=== PATIENT | female | born 2000 | race Caucasian/White ===

== ENCOUNTER 2025-03-23 10:40 | Outpatient (CLI) | payer OTHER, SELFPAY ==
--- OUTSIDE RECORDS SUMMARY | 2025-03-23 11:28 | XMS_ITS | Clinical Summary ---
Author Organization [facility] Address [address] [place] [address] Care Team Providers Care Industrial Radiographer Name Role Phone Angel Hooks MD Primary Care Provider [phone] Social History Tobacco Use Types Packs/Day Years Used Date Smoking Tobacco: Never Assessed Comments Unknown Sex and Gender Information Value Date Recorded Sex Assigned at Not on file Legal Sex Female 7:42 PM CDT Gender Identity Not on file Sexual Orientation Not on file Plan of Treatment Health Maintenance Due Date Last Done Comments Cervical Cancer Screening Pa p Smear (Age 21 to 29) Every 3 Years 1998 Cervical Cancer Screening 1998 Annual Physical 2001 HPV Vaccines (1 - 3-dose series) 2013 Hepatitis C 2016 DTaP, Tdap and Td Vaccines ( 1 - Tdap) 2017 Hepatitis B Vaccines (1 of 3 - 19+ 3-dose series) 2017 COVID-19 Vaccine ( - 2024-2 6 season) 2025 Influenza Adult (#1) 2025 Hepatitis A Vaccines Aged Out No long er eligible based on patient's age to complete this topic Meningococcal B Vaccine Aged Out No l onger eligible based on patient's age to complete this topic Meningococcal Vaccine Aged Out No srinivas angel eligible based on patient's age to complete this topic Pneumococcal Vaccine: Pediat rics (0 to 5 Years) and At-Risk Patients (6 to 49 Years) Aged Out No longer eligible b ased on patient's age to complete this topic RSV Immunizations Under 20 Months Aged Out No longer eligible based on patient's age to complete this topic Insurance [employer] Care Teams Industrial Radiographer Relationship Specialty Start Date End Date Angel Hooks MD [address] [place] [address] PCP - General FAMILY PRACTICE 02/01/23
--- OUTSIDE RECORDS SUMMARY | 2025-03-23 11:28 | XMS_ITS | Clinical Summary ---
Author Organization [facility] Address [address], [facility] [address] [place] [address] Phone Care Team Providers Care General Studies Program Chair Name Role Phone Angel Hooks Primary Care Provider Ramiro Freeman MD Unavailable [phone] Allergies No known active allergies Medications tranexamic Acid (LYSTEDA) 650 MG Tablet Take 2 Tablets by mouth. 08/17/2024 Active Vit-Fe Fumarate-FA ( VITAMIN PO) Take by mouth. Active Active Problems Problem Noted Date Diagnosed Date Iron deficiency anemia 04/03/2024 Encounters Date Type Department Care Team Description 03/13/2025 Telephone [facility] [address] [phone] Ramiro Freeman MD 01/05/2025 8:00 AM CDT Clinical Support [facility] [address] [phone] Nurse, Cc Zeke Iron deficiency anemia, unspecified iron deficiency anemia type (Primary Dx) 01/05/2025 Travel 12/29/2024 8:00 AM CDT Clinical Support [facility] [address] [phone] Nurse, Cc Zeke Iron deficiency anemia, unspecified iron deficiency anemia type (Primary Dx) 12/29/2024 Travel 12/22/2024 8:00 AM CDT Clinical Support [facility] [address] [phone] Nurse, Marsha Alanis Iron deficiency anemia, unspecified iron deficiency anemia type (Primary Dx) 12/22/2024 Travel from Last 3 Months Family History Medical History Relation Name Comments Anemia Father Relation Name Status Comments Father Social History Tobacco Use Types Packs/Day Years Used Date Smoking Tobacco: Never Smokeless Tobacco: Never Tobacco Cessation:Counseling Given: Not Answered Alcohol Use Standard Drinks/Week Comments Not Currently 0 (1 standard drink = 0.6 oz pur e alcohol) Comments Unknown Sex and Gender Information Value Date Recorded Sex Assigned at Not on file Legal Sex Female 3:40 PM SUPERVISOR HOT DIP PLATING Gender Identity Not on file Sexual Orientation Not on file Last Filed Vital Signs Vital Sign Reading Time Taken Comments Blood Pressure 112/64 12/08/2024 12:37 PM CDT Pulse 82 12/08/2024 12:37 PM CDT Temperature 36.7 C (98 F) 12/08/2024 12:37 PM CDT Respiratory Rate 18 12/08/2024 12:37 PM CDT Oxygen Saturation 99% 12/08/2024 12:37 PM CDT Inhaled Oxygen Concentration - - Weight 72 kg (158 lb 11.2 oz) 12/08/2024 12:37 P M CDT Height 154.9 cm (5' 1) 12/08/2024 12:37 PM CDT Body Mass Index 29.99 12/08/2024 12:37 PM CDT Plan of Treatment Upcoming Encounters Date Type Department Care Team (Late st Contact Info) Description 04/27/2025 8:00 AM SUPERVISOR HOT DIP PLATING Lab [facility] [address] [phone] Lab, Marsha Alanis [place] 04/27/2025 8:15 AM SUPERVISOR HOT DIP PLATING Office Visit [facility] [address] [phone] Eduar Martínez MD [address] [place] [address] Health Maintenance Due Date Last Done Comments Hepatitis C Virus (HCV) Screening 1998 Human Papillomavirus (HPV) Immunization (1 - 3-dose series) 2013 Hepatitis B Immunization (1 of 3 - 19+ 3-dose series) 2017 Pap Smear 11/06/2019 Influenza Immunization (#1) 2025 SARS-COV-2 Immunization (1 - 2024- season) 2025 Respiratory Syncytial Virus (RSV) Immunization (Adult) (1 - 1-dose 75+ series) 2073 TdaP Immunization Completed 08/21/2024 Meningococcal Immunization (ACWY) Aged Out No longer eligible based on patient's age to complete this topic Pneumococcal Immunization Combined Aged Out No longer eligible based on patient's age to complete this topic Rotavirus Immunization Aged Out No lo nger eligible based on patient's age to complete this topic Insurance [facility] Care Teams General Studies Program Chair Relationship Specialty Start Date End Date Jessee Angel [address] [address] PCP - General Family Medicine 03/23/24 Ramiro Fereman MD [address] [address] Consulting Physician Oncology 03/23/24
--- OUTSIDE RECORDS SUMMARY | 2025-03-23 11:28 | XMS_ITS | Data Portability ---
Author Organization [facility] Address [address] [place] [address] Care Team Providers Care Doctor Of Medicine Name Role Phone BERTIN TEMPLETON Primary Care Provider [phone] Assessment Encounter Date Assessment Date Assessment LastModified by Organization Details LastModified Time 08/22/2024 08/22/2024 Annual gynecological exam performed. Patient will come back in a year unless there are new symptoms. Not available 08/22/2024 09:15:11 Plan of Treatment Reminders Order Date Submit Date Provider Last Modified By Organization Details Last Modified Time Details Appointments U/S OB SNEAK PEAK 2024 03:30P M ULTRASOUND Not available Not available Not available OB SCREEN 2024 04:00P M April Oshea CNM Not available Not available Not available Lab None recorde d. Referral None recorde d. Procedures None recorde d. Surgeries None recorde d. Imaging None recorde d. Medication Orders None recorde d. Patient TargetsNo targets recorded. Patient InstructionsNo instructions recorded. Reason for Referral None Reported. Medical Equipment None Reported. Allergies No known drug allergies Medications Name Sig Start Date Stop Date Status Note LastModified by Organization Details LastModified Time methylpredn isolone 4 mg tablets in a dose pack FOLLOW PACKAGE DIRECTION S 08/22 completed Not Available Not Available Not Available tranexamic acid (bulk) 08/22 completed Not Available Not Available Not Available tranexamic acid 650 mg tablet TAKE 2 TABLETS BY MOUTH THREE TIMES DAILY DURING MENSES active Not Available Not Available No t Available Sodium Fluoride 5000 Plus 1.1 % dental cream USE ON TEETH DIRECTED. 04/08 /2025 completed Not Available Not Available Not Available Vitals Date Recorded Body height Body mass index (BMI) Body weight Systolic And Diastolic Provider Name and Address Organization Details Last Updated DateTime 08/22/2024 157.48 cm 29.4 kg/m2 36911.65 g 106/70 mm[Hg] Agatha Ayala [facility] 08/22/2024 09:34:23 Social History Question Answer Notes LastModified by Organizat ion Details LastModified Time Do You Have An Advance Directive? No [email or web address] Information n ot available 08/22/2024 Are You Blind Or Do You Have Difficulty Seeing? No [email or web address] Information n ot available 08/22/2024 What Is Your Level Of Caffeine Consumption? Occasional Information not available 08/22/2024 How Much Tobacco Do You Chew? None [email or web address] Information not available 08/22/2024 In The 14 Days Before Symptom Onset, Have You Had Close Contact With A Laboratory-confirm ed COVID-19 While That Case Was Ill? No [email or web address] Information n ot available 08/22/2024 In The 14 Days Before Symptom Onset, Have You Had Close Contact With A Person Who Is Under Investigation For COVID-19 While That Person Was Ill? No Information not available 08/22/2024 Have You Been To An Area Known To Be High Risk For COVID-19? No Information not available 08/22/2024 Are You Deaf Or Do You Have Serious Difficulty Hearing? No [email or web address] Information not available 08/22/2024 What Type Of Diet Are You Following? REGULAR [email or web address] Information n ot available 08/22/2024 What Is The Highest Grade Or Level Of School You Have Completed Or The Highest Degree You Have Received? [id number] [email or web address] Information not available 08/22/2024 Are There Any Guns Present In Your Home? Yes [email or web address] Information not available 08/22/2024 Do You Use Protection During Sex? No Information not available 08/22/2024 Do You Use Your Seat Belt Or Car Seat Routinely? Yes [email or web address] Information not available 08/22/2024 Are You Sexually Active? Yes [email or web address] Information not available 08/22/2024 Do You Have Smoke And Carbon Monoxide Detectors In Your Home? Yes [email or web address] Information not available 08/22/2024 How Much Tobacco Do You Smoke? No [email or web address] Information not available 08/22/2024 Do You Use Sunscreen Routinely? Yes Information not available 08/22/2024 Have You Used IV Drugs? No [email or web address] Information not available 08/22/2024 Do You Have Difficulty Walking Or Climbing Stairs? No [email or web address] Information not available 08/22/2024 Sex: Unknown Functional Status Question Answer Note LastModified by Organizat ion Details LastModified Time Do you use any illicit or recreational drugs? No [email or web address] Information not available 08/22/2024 What is your level of alcohol consumption? Occasional [email or web address] Information not available 08/22/2024 Are you currently employed? Yes Information not available 08/22/2024 Are you able to walk independently without assistance or assistive devices? YESWOREST [email or web address] Information not available 08/22/2024 Are you able to care for yourself independently? 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 No [email or web address] Information not available 08/22/2024 What is your exercise level? Occasional Information not available 08/22/2024 Mental Status Question Answer Note LastModified by Organization D etails LastModified Time Do you feel stressed (tense, restless, nervous, or anxious, or unable to sleep at night)? [id number] Information not available 08/22/2024 Family History Relationship Description Onset Age of this Age Resolved Age Notes LastModified by Organization Details LastModified Time Mother Anemia [email or web address] Not available 08/22/2024 09:15:23 Maternal Grandmother Anemia [email or web address] Not available 12/2024 09:15:23 Maternal Grandmother Malignant neoplasm of colon [email or web address] Not available 2024 09:35:51 Paternal Grandfather Malignant neoplasm of colon [email or web address] Not available 2024 09:35:51 Medical History Condition Response Anemia Y Gynecological History Statement/Question Response Flow Moderate Date of LMP 08/15/2024 On BCP's at Conception? N N Was last menstrual period normal Y STIs/STDs N HPV Vaccine Y Duration of Flow (days) 5 Current Control Method Withdrawal Frequency of Cycle (Q days) 30 Sexually Active? Y Menses Monthly Y Age of first menstrual cycle 10 Date of Last Pap Smear Sexual Problems? N LMP Definite N Obstetrics History GPAL:G 0 P 0 0 0 0 Past Encounters Encounter ID Performer Location Encounter Start Date Encounter Closed Date Diagnosis/Indication Diagnosis SNOMED-CT Code Diagnosis ICD10 Code Diagnosis IMO Codes Diagnosis Note [id number] Pasha Rawls MD [facility] [address] [address] 08/22/2024 09:13:45 08/22/2024 10:03:48 Gynecologic examination 76469567 Z01.419 Annual gynecologi rayshawn exam performed. Patient will come back in a year unless there are new symptoms. Suggest Calcium with Vitamin D if not eating in diet. Patient advised to get annual flu shot. Recommend yearly physicals and perform monthly breast exams. Genetic testing is available for patients with family history of cancer. Engage in safe sexual practices, use condoms. Encouraged to have daily exercise. Avoid tobacco and illicit drugs, moderation of alcohol. If BMI greater than 25 dietary consult advised. If you have any questions please call or email. Pap smear- UTD per pt - 2023 WNL (will request records from [place]'s office) Genetic screening discussed laboratory evaluation - PCP STI testing - declined Recommende d taking PNV when trying to conceive. Health Concerns Section Related Observation LastModified by Organization Detai ls LastModified Time None Recorded Concern Status LastModified by Organization Details LastModified Time None Recorded Advance Directives Directive N: Payers Insurance Date Sequence Insurance Name Policy Number Policy Amaro Covered Member ID Amaro Member ID Guarantor Name 03/21/2025 1 [facility] [id number] Selina Charles [id number] Selina Charles 03/22/2025 1 [facility] ([facility] [id number] Selina Charles [id number] Selina Charles Notes Date Note Type Note Provider Name and Address Organization Details Recorded Time text/html Annual GYNReported by PatientGenitourinary symptomsFor menstrual cycle, patient reportsnormal menses. For urinary symptoms, patient reportsno hematuriaandno incontinence. For vulva, patient reportsno genital lesion. For vagina, patient reportsnormal vaginal discharge.Breast symptomsFor breast, patient reportsno breast pain,no breast lump, andno nipple discharge.ContraceptionFo r current contraception, patient reportsbirth control not practiced.Endocrine symptomsFor sexual complaints, patient reportsno sexual complaints,no pain during intercourse, andnormal libido. For menopausal symptoms, patient reportsno menopausal symptomsandnormal vaginal lubrication.Psychological symptomsFor psychological symptoms, patient reportsno depression,no anxiety, andno pmdd.Preventative measuresFor preventive measures, patient reportsencourage self breast examination,encourage regular exercise,encourage no tobacco use, andencourage regular mammograms starting age 40. New patient presents to establish care.Patient denies specific concerns today. Patient takes Lysteda PRN for heavy periods and hx of anemia; PCP orders manages this medication.Patient and partner considering trying to conceive in the next year so patient prefers to not be on control. DONAVON GALVAN NP [address], [place], [address], [place] [facility] 08/22/2024 10:00:53 OBGyn Episode No OBEpisode recorded.
[2025-03-23 12:55] LABS: Beta HCG Quantitative 13750.00 mIU/ML
== END 2025-03-23 10:41 | disposition home or self-care (01) ==
PROVIDERS: PCP Emergency Medicine; Visit Provider Advanced Practice Midwife
DX: O20.9 Hemorrhage in early pregnancy, unspecified (principal); Z3A.00 Weeks of gestation of pregnancy not specified
CPT/HCPCS: 36415; 84702; 86850; 86900; 86901

== ENCOUNTER 2025-03-25 11:39 | Outpatient (CLI) | payer OTHER, SELFPAY ==
--- OUTSIDE RECORDS SUMMARY | 2025-03-25 12:15 | XMS_ITS | Clinical Summary ---
Author Organization [facility] Address [address], [facility] 1 [place] [address] Phone Care Team Providers Care Punchboard Stuffer Name Role Phone Angel Hooks Primary Care Provider Ramiro Freeman MD Unavailable [phone] Allergies No known active allergies Medications tranexamic Acid (LYSTEDA) 650 MG Tablet Take 2 Tablets by mouth. 08/17/2024 Active Vit-Fe Fumarate-FA ( VITAMIN PO) Take by mouth. Active Active Problems Problem Noted Date Diagnosed Date Iron deficiency anemia 04/03/2024 Encounters Date Type Department Care Team Description 03/13/2025 Telephone [facility] [address] [phone] Ramiro Freeman MD 01/05/2025 8:00 AM CDT Clinical Support [facility] [address] [phone] Nurse, Cc Zeke Iron deficiency anemia, unspecified iron deficiency anemia type (Primary Dx) 01/05/2025 Travel 12/29/2024 8:00 AM CDT Clinical Support [facility] [address] [phone] Nurse, Cc Zeke Iron deficiency anemia, unspecified iron deficiency anemia type (Primary Dx) 12/29/2024 Travel from Last 3 Months Family History [...] on file Legal Sex Female 3: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 Gender Identity Not on file Sexual Orientation [...] st Contact Info) Description 04/27/2025 8:00 AM BULLDOZER/LOADER/COMPACTOR/SCRAPER Lab [facility] [address] [phone] Lab, Cc [facility] 04/27/2025 8:15 AM BULLDOZER/LOADER/COMPACTOR/SCRAPER Office Visit [facility] [address] [phone] Eduar Martínez MD [address] [place] [id number] Health Maintenance Due Date Last Done Comments Hepatitis C Virus (HCV) Screening 1998 Human Papillomavirus (HPV) Immunization (1 - 3-dose series) 2013 Hepatitis B Immunization (1 of 3 - 19+ 3-dose series) 2017 Pap Smear 11/06/2019 Influenza Immunization (#1) 2025 SARS-COV-2 Immunization ( - 2025-26 season) 2025 Respiratory Syncytial Virus (RSV) Immunization [...] patient's age to complete this topic Insurance [facility] Care Teams Punchboard Stuffer Relationship Specialty Start Date End Date Angel Hooks [address] [id number] PCP - General Family Medicine 03/23/24 Ramiro Freeman MD [address] [address] Consulting Physician Oncology 03/23/24
--- OUTSIDE RECORDS SUMMARY | 2025-03-25 12:15 | XMS_ITS ---
Author Organization Unknown ENCOUNTERS Encounter Performer Location Date Diagnosis Diagnosis Status Outpatient [facility] [address] [place] [id number] Outpatient [facility] [address] [place] [id number] PATRIZIA *Note: Encounters from your own facility or health system may be excluded. Allergies, Adverse Reactions, Alerts Allergen Type Severity Identification Date Medications Name Date Quantity Days Supplied GPI Number
--- OUTSIDE RECORDS SUMMARY | 2025-03-25 12:15 | XMS_ITS | Clinical Summary ---
Author Organization [facility] Address [address] [place] [address] Care Team Providers Care Digital Design Engineer Name Role Phone Angel Hooks MD Primary Care Provider Social History Tobacco Use Types Packs/Day Years [...] complete this topic Insurance [employer] Care Teams Digital Design Engineer Relationship Specialty Start Date End Date Angel Hooks MD [address] [place] [address] PCP - General FAMILY PRACTICE 02/01/23
--- OUTSIDE RECORDS SUMMARY | 2025-03-25 12:15 | XMS_ITS | Data Portability ---
Author Organization [facility] Address [address] [place] [address] Care Team Providers Care Spiral Machine Operator Name Role Phone BERTIN TEMPLETON Primary Care Provider [phone] Assessment Encounter Date Assessment Date Assessment LastModified by Organization Details LastModified Time 08/22/2024 08/22/2024 Annual gynecological exam performed. Patient will come back in a year unless there are new symptoms. [email or web address] Not available 08/22/2024 09:15:11 Plan of Treatment [...] Updated DateTime 08/22/2024 157.48 cm 29.4 kg/m2 44085.65 g 106/70 mm[Hg] Agatha Ayala [facility] 08/22/2024 09:34:23 Social History Question Answer Notes LastModified by Organizat ion Details LastModified Time Do You Have An Advance Directive? No [email or web address] Information n ot available 08/22/2024 Are You Blind Or Do You Have Difficulty Seeing? No [email or web address] Information n ot available 08/22/2024 What Is Your Level Of Caffeine Consumption? Occasional [email or web address] Information not available 08/22/2024 How Much Tobacco Do You Chew? None [email or web address] Information not available 08/22/2024 In The 14 Days Before Symptom Onset, Have You Had Close Contact With A Laboratory-confirm ed COVID-19 While That Case Was Ill? No [email or web address] Information n ot available 08/22/2024 In The 14 Days Before Symptom Onset, Have You Had Close Contact With A Person Who Is Under Investigation For COVID-19 While That Person Was Ill? No [email or web address] Information not available 08/22/2024 Have You Been To An Area Known To Be High Risk For COVID-19? No Information not available 08/22/2024 Are You Deaf Or Do You Have Serious Difficulty Hearing? No [email or web address] Information not available 08/22/2024 What Type Of Diet Are You Following? REGULAR Information n ot available 08/22/2024 What Is The Highest Grade Or Level Of School You Have Completed Or The Highest Degree You Have Received? AT62954-4 [email or web address] Information not available 08/22/2024 Are There Any Guns Present In Your Home? Yes [email or web address] Information not available 08/22/2024 Do You Use Protection During Sex? No [email or web address] Information not available 08/22/2024 Do You Use Your Seat Belt Or Car Seat Routinely? Yes [email or web address] Information not available 08/22/2024 Are You Sexually Active? Yes [email or web address] Information not available 08/22/2024 Do You Have Smoke And Carbon Monoxide Detectors In Your Home? Yes Information not available 08/22/2024 How Much Tobacco Do You Smoke? No Information not available 08/22/2024 Do You Use Sunscreen Routinely? Yes [email or web address] Information not available 08/22/2024 Have You Used IV Drugs? No [email or web address] Information not available 08/22/2024 Do You Have Difficulty Walking Or Climbing Stairs? No [email or web address] Information not available 08/22/2024 Sex: Unknown Functional Status Question Answer Note LastModified by Organizat ion Details LastModified Time Do you use any illicit or recreational drugs? No [email or web address] Information not available 08/22/2024 What is your level of alcohol consumption? Occasional [email or web address] Information not available 08/22/2024 Are you currently employed? Yes [email or web address] Information not available 08/22/2024 Are you able to walk independently without assistance or assistive devices? YESWOREST [email or web address] Information not available 08/22/2024 Are you able to care for yourself independently? 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 No Information not available 08/22/2024 What is your exercise level? Occasional [email or web address] Information not available 08/22/2024 Mental Status Question Answer Note LastModified by Organization D etails LastModified Time Do you feel stressed (tense, restless, nervous, or anxious, or unable to sleep at night)? [id number] pzifnvs29 Information not available 08/22/2024 Family History Relationship Description Onset Age of this Age Resolved Age Notes LastModified by Organization Details LastModified Time Mother Anemia [email or web address] Not available 08/22/2024 09:15:23 Maternal Grandmother Anemia [email or web address] Not available 12/2024 09:15:23 Maternal Grandmother Malignant neoplasm of colon [email or web address] Not available 2024 09:35:51 Paternal Grandfather Malignant neoplasm of colon [email or web address] Not available 2024 09:35:51 Medical History Condition [...] ICD10 Code Diagnosis IMO Codes Diagnosis Note [id number] Pasha Rawls MD [place] [address] [address] 08/22/2024 09:13:45 08/22/2024 10:03:48 Gynecologic examination [id number] Z01.419 Annual gynecologi rayshawn exam performed. Patient [...] - 2023 WNL (will request records from [facility]'s office) Genetic screening discussed laboratory evaluation - [...] Amaro Member ID Guarantor Name 03/21/2025 1 [facility] [id number] Selina Charles [id number] Selina Charles 03/22/2025 1 [facility] ([facility]) [id number] Selina Charles [id number] Selina Charles Notes Date Note Type Note [...] control. DONAVON GALVAN NP [address], [place], [address], [place] [facility] 08/22/2024 10:00:53 OBGyn Episode No OBEpisode recorded.
[2025-03-25 13:10] LABS: Beta HCG Quantitative 17680.00 mIU/ML
== END 2025-03-25 11:40 | disposition home or self-care (01) ==
PROVIDERS: PCP Emergency Medicine; Visit Provider Advanced Practice Midwife
DX: O26.859 Spotting complicating pregnancy, unspecified trimester (principal); Z3A.00 Weeks of gestation of pregnancy not specified
CPT/HCPCS: 36415; 84702

== ENCOUNTER 2025-03-28 14:45 | Outpatient (CLI) | payer OTHER, SELFPAY ==
--- NOTE | ~2025-03-28 | US_ITS ---
EXAM(S)/PROCEDURE(S): Ultrasound OB less than or equal to 14 week fetus with TV HISTORY: patient bleeding COMPARISON: None GENERAL: There are 2 ovoid fluid collections in the endometrial cavity. One contains a yolk sac and a pole. One contains very hypoechoic areas of soft tissue density, mostly appearing to adhere to a wall. Heterotopic is not excluded, but would be unlikely. Number of embryos: [address]-Rump Length (mean): 0.33 cm, 6 weeks 2 days. Yolk Sac: Present. No cardiac activity was definitively identified sonographically. MATERNAL PELVIS Right ovary: Multiple simple cysts, the largest of which measures 4.4 cm in greatest diameter. Left ovary: Not seen Cul-de-sac: There is a mild to moderate amount of free pelvic fluid IMPRESSION: 1. No cardiac activity was identified by M-mode. This may represent a demise. 2. The second saclike structure could relate to a twin gestation with earlier demise. Other etiologies are not excluded. 3. I made multiple attempts to contact the nurse practitioner, both on my own and through the hospital caterpillar tractor operator. I have left a voice message. It was not asked of us to hold the patient for results. Reviewed, dictated and finalized at location A. WAREHOUSE ADMINISTRATOR IMPRESSION: 1. No cardiac activity was identified by M-mode. This may represent a dem ise. 2. The second saclike structure could relate to a twin gestation with earlier d emise. Other etiologies are not excluded. 3. I made multiple attempts to contact the nurse practitioner, both on my own a nd through the hospital caterpillar tractor operator. I have left a voice message. It was not asked of us to hold the patient for results.
--- OUTSIDE RECORDS SUMMARY | 2025-03-28 15:42 | XMS_ITS ---
Author Organization Unknown ENCOUNTERS Encounter Performer Location Date Diagnosis Diagnosis Status Outpatient [id number] [place] [address] [id number] Outpatient [address] [place] [address] [id number] [facility] Outpatient [address] [place] [address] [id number] PATRIZIA *Note: Encounters from your own facility or health system may be excluded. Allergies, Adverse Reactions, Alerts Allergen Type Severity Identification Date Medications Name Date Quantity Days Supplied GPI Number
--- OUTSIDE RECORDS SUMMARY | 2025-03-28 15:42 | XMS_ITS | Clinical Summary ---
Author Organization [facility] Address [address], [facility] [address] [place] [address] Phone Care Team Providers Care Fire Boat Engineer Name Role Phone Angel Hooks Primary Care Provider Ramiro Freeman MD Unavailable [phone] Allergies No known active allergies Medications tranexamic Acid (LYSTEDA) 650 MG Tablet Take 2 Tablets by mouth. 08/17/2024 Active Vit-Fe Fumarate-FA ( VITAMIN PO) Take by mouth. Active Active Problems Problem Noted Date Diagnosed Date Iron deficiency anemia 04/03/2024 Encounters Date Type Department Care Team Description 03/13/2025 Telephone [facility] [address] [address] Ramiro Freeman MD 01/05/2025 8:00 AM CDT Clinical Support [facility] [address] [phone] Nurse, Cc Zeke Iron deficiency anemia, unspecified iron deficiency anemia type (Primary Dx) 01/05/2025 Travel 12/29/2024 8:00 AM CDT Clinical Support [facility] [address] [phone] Nurse, Cc Zeke Iron deficiency anemia, unspecified [...] on file Legal Sex Female 3:40 PM CAREER DEVELOPMENT ENGINEER Gender Identity Not on file Sexual Orientation [...] st Contact Info) Description 04/27/2025 8:00 AM CAREER DEVELOPMENT ENGINEER Lab [facility] [address] [phone] Lab, Cc [facility] 04/27/2025 8:15 AM CAREER DEVELOPMENT ENGINEER Office Visit [facility] [address] [phone] Eduar Martínez MD [address] [place] [address] [place] [address] [phone] Health Maintenance Due Date Last Done Comments [...] patient's age to complete this topic Insurance [facility] Care Teams Fire Boat Engineer Relationship Specialty Start Date End Date Angel Hooks [address] [id number] PCP - General Family Medicine 03/23/24 Ramiro Freeman MD [address] [address] Consulting Physician Oncology 03/23/24
--- OUTSIDE RECORDS SUMMARY | 2025-03-28 15:42 | XMS_ITS | Clinical Summary ---
Author Organization [facility] Address [address] [place] [address] Care Team Providers Care Route Salesman Name Role Phone Angel Hooks MD Primary Care Provider [phone] Social History Tobacco Use Types Packs/Day Years [...] complete this topic Insurance [employer] Care Teams Route Salesman Relationship Specialty Start Date End Date Angel Hooks MD [address] [place] [address] PCP - General FAMILY PRACTICE 02/01/23
--- OUTSIDE RECORDS SUMMARY | 2025-03-28 15:43 | XMS_ITS | Data Portability ---
Author Organization [facility] Address [address] [place] [address] Care Team Providers Care Pourer Off Name Role Phone BERTIN TEMPLETON Primary Care Provider [phone] Assessment Encounter Date Assessment Date Assessment LastModified by Organization Details LastModified Time 08/22/2024 08/22/2024 Annual gynecological exam performed. Patient will come back in a year unless there are new symptoms. [email or web address] Not available 08/22/2024 09:15:11 Plan of Treatment [...] instructions recorded. Reason for Referral None Reported. Results Created Date Observation Date Name Description Value Unit Range Abnormal Flag Note LastModifiedBy Organization Detail LastModifiedTime Result Notes None recorded. Medical Equipment None Reported. Allergies No known [...] % dental cream USE ON TEETH DIRECTED. 08/22 completed Not Available Not Available Not Available Vitals Date Recorded Body height Body mass index (BMI) Body weight Systolic And Diastolic Provider Name and Address Organization Details Last Updated DateTime 08/22/2024 157.48 cm 29.4 kg/m2 77671.65 g 106/70 mm[Hg] Agatha Ayala [facility] 08/22/2024 09:34:23 Social History Question Answer Notes LastModified by Organizat ion Details LastModified Time Do You Have An Advance Directive? No [email or web address] Information n ot available 08/22/2024 Are You Blind Or Do You Have Difficulty Seeing? No [email or web address] Information n ot available 08/22/2024 What Is Your Level Of Caffeine Consumption? Occasional [email or web address] Information not available 08/22/2024 How Much Tobacco Do You Chew? None [email or web address] Information not available 08/22/2024 In The 14 Days Before Symptom Onset, Have You Had Close Contact With A Laboratory-confirm ed COVID-19 While That Case Was Ill? No [email or web address] Information n ot available 08/22/2024 In The 14 Days Before Symptom Onset, Have You Had Close Contact With A Person Who Is Under Investigation For COVID-19 While That Person Was Ill? No [email or web address] Information not available 08/22/2024 Have You Been To An Area Known To Be High Risk For COVID-19? No Information not available 08/22/2024 Are You Deaf Or Do You Have Serious Difficulty Hearing? No [email or web address] Information not available 08/22/2024 What Type Of Diet Are You Following? REGULAR pxqxlui50 Information n ot available 08/22/2024 What Is The Highest Grade Or Level Of School You Have Completed Or The Highest Degree You Have Received? [id number] [email or web address] Information not available 08/22/2024 Are There Any Guns Present In Your Home? Yes [email or web address] Information not available 08/22/2024 Do You Use Protection During Sex? No [email or web address] Information not available 08/22/2024 Do You Use Your Seat Belt Or Car Seat Routinely? Yes tnukyfy19 Information not available 08/22/2024 Are You Sexually Active? Yes vukuirn16 Information not available 08/22/2024 Do You Have Smoke And Carbon Monoxide Detectors In Your Home? Yes [email or web address] Information not available 08/22/2024 How Much Tobacco Do You Smoke? No Information not available 08/22/2024 Do You Use Sunscreen Routinely? Yes [email or web address] Information not available 08/22/2024 Have You Used IV Drugs? No [email or web address] Information not available 08/22/2024 Do You Have Difficulty Walking Or Climbing Stairs? No [email or web address] Information not available 08/22/2024 Sex: Unknown Functional Status Question Answer Note LastModified by Organizat ion Details LastModified Time Do you use any illicit or recreational drugs? No [email or web address] Information not available 08/22/2024 What is your level of alcohol consumption? Occasional [email or web address] Information not available 08/22/2024 Are you currently employed? Yes lqyupqi46 Information not available 08/22/2024 Are you able to walk independently without assistance or assistive devices? YESWOREST lncdkqi67 Information not available 08/22/2024 Are you able to care for yourself independently? 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 No ynpvftl37 Information not available 08/22/2024 What is your exercise level? Occasional [email or web address] Information not available 08/22/2024 Mental Status Question Answer Note LastModified by Organization D etails LastModified Time Do you feel stressed (tense, restless, nervous, or anxious, or unable to sleep at night)? [id number] fiocpbx41 Information not available 08/22/2024 Family History Relationship Description Onset Age of this Age Resolved Age Notes LastModified by Organization Details LastModified Time Mother Anemia [email or web address] Not available 08/22/2024 09:15:23 Maternal Grandmother Anemia [email or web address] Not available 12/2024 09:15:23 Maternal Grandmother Malignant neoplasm of colon [email or web address] Not available 2024 09:35:51 Paternal Grandfather Malignant neoplasm of colon [email or web address] Not available 2024 09:35:51 Medical History Condition [...] ICD10 Code Diagnosis IMO Codes Diagnosis Note [id number] Pasha Rawls MD [place] [address] [address] 08/22/2024 09:13:45 08/22/2024 10:03:48 Gynecologic examination [id number] Z01.419 Annual gynecologi rayshawn exam performed. Patient [...] - 2023 WNL (will request records from [facility]'s office) Genetic screening discussed laboratory evaluation - [...] Amaro Member ID Guarantor Name 03/21/2025 1 [facility] [id number] Selina Charles [id number] Selina Charles 03/22/2025 1 [facility] ([facility]) [id number] Selina Charles [id number] Selina Charles Notes Date Note Type Note Provider Name and Address Organization Details Recorded Time 5 text/html Annual GYNReported by PatientGenitourinary symptomsFor menstrual [...] prefers to not be on control. DONAVON GALVAN, [place] [address], [place], [address], [place] [facility] 08/22/2024 10:00:53 OBGyn Episode No OBEpisode recorded.
== END 2025-03-28 14:46 | disposition home or self-care (01) ==
PROVIDERS: PCP Emergency Medicine; Visit Provider Advanced Practice Midwife
DX: O20.0 Threatened abortion (principal); Z3A.00 Weeks of gestation of pregnancy not specified
CPT/HCPCS: 76801; 76817

== ENCOUNTER 2025-04-03 13:58 | Emergency (ER) | payer OTHER, SELFPAY ==
--- NOTE | ~2025-04-03 | US_ITS ---
EXAMINATION: Ultrasound uterus OB limited: DATE: 04/03/2025 INDICATION: Pelvic cramping. No history of bleeding. TECHNIQUE: Transabdominal and transvaginal examinations. were obtained. COMPARISON: Previous study of 03/28/2025. FINDINGS: Intrauterine gestation is noted with average crown-rump length of 8.4 mm corresponding to 6 weeks and 5 days gestation. heart observed with a heart rate of 141 beats. There is no evidence of twin gestation. However there is a hypoechoic collection complex in nature surrounding the gestational sac suggestive of subchorionic bleed. 4 cm cyst of the right ovary suggestive of corpus luteum cyst. Color flow is noted within the right ovary. Left ovary is not visualized. IMPRESSION: 1. There is evidence of single live fetus in contrite trying gestational sac, 6 weeks and 3 days gestational age by crown-rump length. 2. heart rate is measured at 1 41 bpm. 3. Hypoechoic collection surrounding the gestational sac as described above suggesting subchorionic bleed. Cervix is not visualized. 4. 4 cm size corpus luteum cyst of the right ovary. No free fluid. Reviewed, dictated and finalized at location T. RECOVERY SPECIALIST IMPRESSION: 1. There is evidence of single live fetus in contrite trying gestational sac, 6 weeks and 3 days gestational age by crown-rump length. 2. heart rate is measured at 1 41 bpm. 3. Hypoechoic collection surrounding the gestational sac as described above sug gesting subchorionic bleed. Cervix is not visualized. 4. 4 cm size corpus luteum cyst of the right ovary. No free fluid.
[2025-04-03 14:17] VITALS: BP 115/67; PULSE 105; RESP 17; TEMP 36.8; O2SAT 100
[2025-04-03 15:37] VITALS: BP 116/63; PULSE 86; RESP 14; O2SAT 98
[2025-04-03 16:58] LABS: Hematocrit 36.2 % (37.0-47.0); Hemoglobin 12.9 g/dL (12.0-15.0); Immature Granulocyte Percent A 0.4 % (0-0.5); Lymphocytes Absolute Auto 1.07 K/mm3 (0.9-3.2); Mean Corpuscular HGB Conc 35.6 g/dl (32-36); Mean Corpuscular Hemoglobin 30.8 pg (26-34); Mean Corpuscular Volume 86.4 fl (80-100); Nucleated Red Blood Cells Absolute Auto 0.000 K/mm3 (0.0-0.012); Nucleated Red Blood Cells Perc 0.0 % (0.0-0.2); Platelet Count Result 206 k/mm3 (150-375); Red Blood Count 4.19 M/mm3 (4.2-5.4); White Blood Count 12.2 K/mm3 (4.5-10.0)
--- NOTE | 2025-04-03 16:59 | ED_ITS ---
HPI - General Adult General Chief complaint: EDITOR MANAGING NEWSPAPER Stated complaint: possible miscarriage - quite a few issues Time Seen by Provider: 04/03/25 16:35 History of Present Illness HPI narrative: 24-year-old female's is approximately 7 weeks presents to the emergency department for evaluation for increased lower abdominal cramping. Patient was having some vaginal bleeding on Wednesday and did have serial beta HCGs. Patient did have some vaginal bleeding on Wednesday. Patient did have ultrasound on Wednesday showing potential loss of 1 of the fetuses. Patient is scheduled to follow-up with Dr. Rawls. While at work patient had onset of lower abdominal cramping. Patient states this was intense but patient had no vaginal bleeding with this. At time of evaluation patient states the cramping has improved. Patient's blood type is A negative. This is the patient's 1st . Patient states she had not been treated with RhoGAM when she had the vaginal bleeding on Wednesday. Related Data Allergies Allergy/AdvReac Type Severity Reaction Status Date / Time No Known Allergies Allergy Verified 04/03/25 14:58 Review of Systems 2 Review of Systems: All systems reviewed & are unremarkable except as noted in HPI and below Exam 2 Narrative: APPEARANCE: Well appearing, no pain, no distress, well-nourished. HEAD: normocephalic, atraumatic. EYES: PERRLA/EOMI, conjunctivae clear. NOSE: Normal no drainage EARS:TMS clear with good light reflex. THROAT: Pharynx clear, no exudate. NECK: Supple. No adenopathy, no masses. RESPIRATORY: Airway patent, respirations nonlabored. Clear to auscultation bilaterally, no rales, rhonchi, wheezing. CARDIOVASCULAR: Regular rate and rhythm without murmurs rubs or gallops. ABDOMINAL: Soft, nontender, nondistended, normal bowel sounds MUSCULOSKELETAL: Moves all extremities. Strength/ROM intact, No edema, No calf tenderness. NEURO: Alert. Cranial nerves II through XII intact. Good gait. Good coordination SKIN: Warm, dry. Normal Color Course Vital Signs Vital signs: Vital Signs Temperature 98.2 F 04/03/25 14:17 Pulse Rate 105 H 04/03/25 14:17 Respiratory Rate 17 04/03/25 14:17 Blood Pressure 115/67 04/03/25 14:17 Pulse Oximetry 100 04/03/25 14:17 Temperature 98.2 F 04/03/25 14:17 Pulse Rate 86 04/03/25 15:37 Respiratory Rate 14 04/03/25 15:37 Blood Pressure 116/63 04/03/25 15:37 Pulse Oximetry 98 04/03/25 15:37 Medical Decision Making MDM Narrative Medical decision making narrative: 24-year-old female present to the emergency department for evaluation for lower abdominal cramping. Patient is currently afebrile with a leukocytosis 12.2 and hemoglobin 12.9. INR is 1.0. No acute abnormalities on the CMP patient's beta hCG is 75,000 which is significantly elevated from her previous. UA was negative for infection. Patient was treated with RhoGAM in the emergency department. ultrasound does show a single intrauterine with suspected surrounding subchorionic hemorrhage. Differential Diagnosis Differential Diagnosis: Urinary tract infection, vaginal bleeding during Vital Signs Vital Signs: Vital Signs Temperature 98.2 F 04/03/25 14:17 Pulse Rate 105 H 04/03/25 14:17 Respiratory Rate 17 04/03/25 14:17 Blood Pressure 115/67 04/03/25 14:17 Pulse Oximetry 100 04/03/25 14:17 Temperature 98.2 F 04/03/25 14:17 Pulse Rate 86 04/03/25 15:37 Respiratory Rate 14 04/03/25 15:37 Blood Pressure 116/63 04/03/25 15:37 Pulse Oximetry 98 04/03/25 15:37 Lab Data Lab results reviewed: Yes I reviewed the patient's lab results. 04/03/25 15:35 04/03/25 15:35 Labs: Lab Results 04/03/25 04/03/25 Range/Units 15:35 17:00 WBC 12.2 H (4.5-10.0) K/mm3 RBC 4.19 L (4.2-5.4) M/mm3 Hgb 12.9 (12.0-15.0) g/dL Hct 36.2 L (37.0-47.0) % MCV 86.4 (80-100) fl MCH 30.8 (26-34) pg MCHC 35.6 (32-36) g/dl RDW 11.9 (11.5-14.5) % Plt Count 206 (150-375) k/mm3 MPV 9.8 (7.4-10.4) fl Immature Gran % (Auto) 0.4 (0-0.5) % Neut % (Auto) 85.8 H (45.5-73.1) % Lymph % (Auto) 8.8 L (18.3-44.2) % [place] % (Auto) 4.7 (2.6-8.5) % Eos % (Auto) 0.1 (0-4.4) % Baso % (Auto) 0.2 (0.2-1.2) % Lymph # (Auto) 1.07 (0.9-3.2) K/mm3 [place] # (Auto) 0.6 (0.1-0.6) K/mm3 Eos # (Auto) 0.0 (0-0.3) K/mm3 Baso # (Auto) 0.0 (0.0-0.1) K/mm3 Abs Immat Gran (auto) 0.05 H (0.00-0.031) K/mm3 Absolute Neuts (auto) 10.5 H (1.3-6.7) K/mm3 Absolute Nucleated RBC 0.000 (0.0-0.012) K/mm3 Nucleated RBC % 0.0 (0.0-0.2) % PT 13.4 (11.1-14.7) Seconds INR 1.0 APTT 28.1 (22.3-36.8) Seconds Sodium 135 L (137-145) mmol/L Potassium 3.8 (3.4-5.0) mmol/L Chloride 104 (98-107) mmol/L Carbon Dioxide 21 L (22-30) mmol/L Anion Gap 10 (4-12) mmol/L BUN 9 (7-17) mg/dL Creatinine 0.58 L (0.7-1.0) mg/dL Estim Creat Clear Calc 115 ml/min Estimated GFR > 60 (59 - ) Glucose 85 (65-110) mg/dL Calcium 10.0 (8.4-10.2) mg/dL Total Bilirubin 0.5 (0.2-1.3) mg/dL AST 29 (14-36) U/L ALT 49 H (6-35) U/L Alkaline Phosphatase 74 (38-126) U/L Total Protein 7.4 (6.3-8.2) g/dL Albumin 4.4 (3.5-5.1) g/dL Beta HCG, Quant 52270.00 mIU/ML Urine Color Yellow (Yellow) Urine Appearance Clear (Clear) Urine pH 7.5 (5.0-9.0) Ur Specific [place] 1.007 (1.001-1.035) Urine Protein Negative (Negative) mg/dL Urine Glucose (UA) Negative (Negative) mg/dL Urine Ketones Trace H (Negative) mg/dL Ur Blood (Man) Negative (Negative) Urine Nitrate Negative (Negative) Urine Bilirubin Negative (Negative) Urine Urobilinogen 0.2 (<2.0) mg/dL Leukocyte Esterase Rfl Trace H (Negative) BERNARD/UL Urine RBC 0-2 (0-2) /hpf Urine WBC 0-5 (0-3) /hpf Ur Squamous Epith Cells Occasional (Few) /hpf Urine Bacteria Rare /hpf Urine Casts 0-2 Blood Type A Negative Antibody Screen Negative Screen Not Reportable Baby's Blood Type Not Reportable Baby's LOYD Not Reportable Doses of RhIg Required 1 Imaging Data Radiologist's impression: Impressions Obstetrics Ultrasound 04/03/25 17:58 IMPRESSION: 1. There is evidence of single live fetus in contrite trying gestational sac, 6 weeks and 3 days gestational age by crown-rump length. 2. heart rate is measured at 1 41 bpm. 3. Hypoechoic collection surrounding the gestational sac as described above suggesting subchorionic bleed. Cervix is not visualized. 4. 4 cm size corpus luteum cyst of the right ovary. No free fluid. Discharge Plan Discharge Clinical Impression: Abdominal cramping affecting Patient Disposition: Home Condition: Stable Instructions: Antibiotic Form Additional Instructions: Continue to have close follow-up with OB Gyne. Drink plenty of water. Tylenol for pain control. If you have any worsening symptoms please call or return to the emergency department. Patient Language: Greenlandic Follow-up/Referrals: Pasha Rawls MD [Physician, DATA MINING ANALYST] Angel Hooks MD [Primary Care Provider, Family Practice]
[2025-04-03 17:06] LABS: Alanine Aminotransferase 49 U/L (6-35); Albumin Level 4.4 g/dL (3.5-5.1); Alkaline Phosphatase 74 U/L (38-126); Anion Gap 10 mmol/L (4-12); Aspartate Amino Transferase 29 U/L (14-36); Bilirubin,Total 0.5 mg/dL (0.2-1.3); Blood Urea Nitrogen 9 mg/dL (7-17); Calcium 10.0 mg/dL (8.4-10.2); Carbon Dioxide 21 mmol/L (22-30); Chloride 104 mmol/L (98-107); Estimated CRCL calculation 115 ml/min; Estimated Glomerular Filt Rate > 60; Glucose 85 mg/dL (65-110); Potassium 3.8 mmol/L (3.4-5.0); Sodium 135 mmol/L (137-145); Total Protein 7.4 g/dL (6.3-8.2)
[2025-04-03 17:11] LABS: Add Urine Microscopic? YES; Appearance Urine Clear (Clear); Glucose Urine UA Negative (Negative); Leukocyte Esterase Ur Trace LEU/UL (Negative); Nitrate Urine Negative (Negative); Non Pathogenic Casts 0-2; Specific Grav Ur 1.007 (1.001-1.035)
[2025-04-03 17:30] LABS: INR 1.0; Prothrombin Time 13.4 Seconds (11.1-14.7)
[2025-04-03 17:31] LABS: Partial Thromboplastin Time 28.1 Seconds (22.3-36.8)
[2025-04-03] MEDS: LACTATED RINGERS 1,000 ML 999 ML IV CONT (17:42)
[2025-04-03] MEDS: RHO(D) IMMUNE GLOBULIN 300 MCG/2 ML SYRINGE IM (18:11)
--- OUTSIDE RECORDS SUMMARY | 2025-04-04 04:03 | XMS_ITS | Clinical Summary ---
Author Organization [facility] Address [address] [place] [id number] Care Team Providers Care Assembly Instructions Writer Name Role Phone Angel Hooks MD Primary Care Provider [phone] Social History Tobacco Use Types Packs/Day Years [...] complete this topic Insurance [employer] Care Teams Assembly Instructions Writer Relationship Specialty Start Date End Date Angel Hooks MD [address] [place] [address] PCP - General FAMILY PRACTICE 02/01/23
--- OUTSIDE RECORDS SUMMARY | 2025-04-04 04:03 | XMS_ITS | Data Portability ---
Author Organization [facility] Address [address] [place] [address] Care Team Providers Care Field Marketing Coordinator Name Role Phone BERTIN TEMPLETON Primary Care Provider Assessment Encounter Date Assessment Date Assessment LastModified by Organization Details LastModified Time 08/22/2024 08/22/2024 Annual gynecological exam performed. Patient will come back in a year unless there are new symptoms. Not available 08/22/2024 09:15:11 Plan of Treatment Reminders Order Date Submit Date Provider Last Modified By Organization Details Last Modified Time Details Appointments U/S ADDICTIONS THERAPIST COMPLET E 2024 03:30P M ULTRASOUND Not available Not available Not available FOLLOW UP 2024 04:00P M SISSY JIANG MD Not available Not available Not available Lab None recorde d. Referral None recorde d. Procedures None recorde d. Surgeries None recorde d. Imaging None recorde d. Medication Orders None recorde d. Patient TargetsNo targets recorded. Patient InstructionsNo instructions recorded. Reason for Referral None Reported. Results Created Date Observation Date Name Description Value Unit Range Abnormal Flag Note LastModifiedBy Organization Detail LastModifiedTime 03/28/2003/28/2025 US, obste tric, 1st trime ster No observ ation record ed. [email or web address] [address], [address], 03/30/2025 11:28:43 03/29/20 25 03/28/2025 US, obste tric, 1st trime ster No observ ation record ed. [email or web address] [address], [address], 03/30/2025 08:56:38 Result Notes None recorded. Medical Equipment None [...] Updated DateTime 08/22/2024 157.48 cm 29.4 kg/m2 46746.65 g 106/70 mm[Hg] Agatha Ayala [facility] 08/22/2024 09:34:23 Social History Question Answer Notes LastModified by Organizat ion Details LastModified Time Do You Have An Advance Directive? No [email or web address] Information n ot available 08/22/2024 Are You Blind Or Do You Have Difficulty Seeing? No [email or web address] Information n ot available 08/22/2024 What Is Your Level Of Caffeine Consumption? Occasional Information not available 08/22/2024 How Much Tobacco Do You Chew? None [email or web address] Information not available 08/22/2024 In The 14 Days Before Symptom Onset, Have You Had Close Contact With A Laboratory-confirm ed COVID-19 While That Case Was Ill? No [email or web address] Information n ot available 08/22/2024 In The 14 Days Before Symptom Onset, Have You Had Close Contact With A Person Who Is Under Investigation For COVID-19 While That Person Was Ill? No [email or web address] Information not available 08/22/2024 Have You Been To An Area Known To Be High Risk For COVID-19? No [email or web address] Information not available 08/22/2024 Are You Deaf Or Do You Have Serious Difficulty Hearing? No [email or web address] Information not available 08/22/2024 What Type Of Diet Are You Following? REGULAR [email or web address] Information n ot available 08/22/2024 What Is The Highest Grade Or Level Of School You Have Completed Or The Highest Degree You Have Received? TG21750-0 [email or web address] Information not available 08/22/2024 Are There Any Guns Present In Your Home? Yes [email or web address] Information not available 08/22/2024 Do You Use Protection During Sex? No [email or web address] Information not available 08/22/2024 Do You Use Your Seat Belt Or Car Seat Routinely? Yes Information not available 08/22/2024 Are You Sexually Active? Yes [email or web address] Information not available 08/22/2024 Do You Have Smoke And Carbon Monoxide Detectors In Your Home? Yes [email or web address] Information not available 08/22/2024 How Much Tobacco Do You Smoke? No [email or web address] Information not available 08/22/2024 Do You Use Sunscreen Routinely? Yes [email or web address] Information not available 08/22/2024 Have You Used IV Drugs? No [email or web address] Information not available 08/22/2024 Do You Have Difficulty Walking Or Climbing Stairs? No [email or web address] Information not available 08/22/2024 Sex: Unknown Functional Status Question Answer Note LastModified by Organizat ion Details LastModified Time Do you use any illicit or recreational drugs? No [email or web address] Information not available 08/22/2024 What is your level of alcohol consumption? Occasional [email or web address] Information not available 08/22/2024 Are you currently employed? Yes [email or web address] Information not available 08/22/2024 Are you able to walk independently without assistance or assistive devices? YESWOREST [email or web address] Information not available 08/22/2024 Are you able to care for yourself independently? 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 No [email or web address] Information not available 08/22/2024 What is your exercise level? Occasional [email or web address] Information not available 08/22/2024 Mental Status Question Answer Note LastModified by Organization D etails LastModified Time Do you feel stressed (tense, restless, nervous, or anxious, or unable to sleep at night)? [id number] Information not available 08/22/2024 Family History Relationship Description Onset Age of this Age Resolved Age Notes LastModified by Organization Details LastModified Time Mother Anemia [email or web address] Not available 08/22/2024 09:15:23 Maternal Grandmother Anemia [email or web address] Not available 12/2024 09:15:23 Maternal Grandmother Malignant neoplasm of colon [email or web address] Not available 2024 09:35:51 Paternal Grandfather Malignant neoplasm of colon [email or web address] Not available 2024 09:35:51 Medical History Condition [...] ICD10 Code Diagnosis IMO Codes Diagnosis Note [id number] Pasha Rawls MD [place] [address] [address] 08/22/2024 09:13:45 08/22/2024 10:03:48 Gynecologic examination [id number] Z01.419 Annual gynecologi rayshawn exam performed. Patient [...] Amaro Member ID Guarantor Name 03/21/2025 1 [facility] [id number] Selina Charles [id number] Selina Charles 04/03/2025 1 [facility] ([facility] [id number] Selina Dumontg [id number] Selina Charles Notes Date Note Type Note [...] control. DONAVON GALVAN, FRANCHESCA [address], [place], [address], [place] [facility] 08/22/2024 10:00:53 OBGyn Episode No OBEpisode recorded.
--- OUTSIDE RECORDS SUMMARY | 2025-04-04 04:03 | XMS_ITS | Clinical Summary ---
Author Organization [facility] Address [address], [facility] [address] [place] [address] Phone Care Team Providers Care Imaging Nurse Name Role Phone Angel Hooks Primary Care Provider Ramiro Freeman MD Unavailable [phone] Allergies No known active allergies Medications tranexamic Acid (LYSTEDA) 650 MG Tablet Take 2 Tablets by mouth. 08/17/2024 Active Vit-Fe Fumarate-FA ( VITAMIN PO) Take by mouth. Active Active Problems Problem Noted Date Diagnosed Date Iron deficiency anemia 04/03/2024 Encounters Date Type Department Care Team Description 03/13/2025 Telephone [facility] [address] [address] Ramiro Freeman MD 01/05/2025 8:00 AM CDT Clinical Support [facility] [address] [address] Nurse, Cc [facility] Iron deficiency anemia, unspecified iron deficiency anemia type (Primary Dx) 01/05/2025 Travel from Last 3 Months Family History [...] on file Legal Sex Female 3:40 PM HUMAN RESOURCES GENERALIST Gender Identity Not on file Sexual Orientation [...] st Contact Info) Description 04/27/2025 8:00 AM HUMAN RESOURCES GENERALIST Lab [facility] [address] [phone] Lab, Cc [facility] 04/27/2025 8:15 AM HUMAN RESOURCES GENERALIST Office Visit [facility] [address] [phone] Eduar Martínez MD [address] [place] [address] [place] [id number] Health Maintenance Due Date Last Done Comments Hepatitis C Virus (HCV) Screening 1998 Human Papillomavirus (HPV) Immunization (1 - 3-dose series) 2013 Hepatitis B Immunization (1 of 3 - 19+ 3-dose series) 2017 Pap Smear 11/06/2019 Influenza Immunization (#1) 2025 SARS-COV-2 Immunization ( - 2024- season) 2025 Respiratory Syncytial Virus [...] patient's age to complete this topic Insurance [facility] Care Teams Imaging Nurse Relationship Specialty Start Date End Date Angel Hooks [address] [place] [id number] PCP - General Family Medicine 03/23/24 Ramiro Freeman MD [address] [id number] Consulting Physician Oncology 03/23/24
== END 2025-04-03 18:55 | disposition home or self-care (01) ==
PROVIDERS: Student in an Organized Health Care Education/Training Program; Emergency Provider Emergency Medicine; PCP Emergency Medicine
DX: R10.23 Pelvic and perineal pain bilateral (principal); O26.891 Other specified pregnancy related conditions, first trimester; Z3A.01 Less than 8 weeks gestation of pregnancy
CPT/HCPCS: 36415; 76801; 76817; 80053; 81001; 84702; 85025; 85461; 85610; 85730; 86850; 86900; 86901; 90384; 96360; 96372; 99284; J2790; J7120